=== PATIENT | female | born 1960 | race Caucasian/White ===

== ENCOUNTER 2016-05-27 12:49 | Emergency (ER) | payer OTHER, BC ==
[~2016-05-27] VITALS: Ht 154.9 cm; Wt 60.1 kg
[~2016-05-27 12:49] MED LIST: BIOTIN10000 MC1 PO; BUSPAR30 MG PO; CALCIUM CITRAT200 MG PO; DESYREL 150 MG150 MG PO; DIAZEPAM10 MG PO; DICYCLOMINE HCL20 MG PO; DILAUDID2 MG PO; ELAVIL100 MG PO; FLEXERIL10 MG PO; GABAPENTIN400 MG PO; IRON325 M1 PO; KEFLEX500 MG PO; LEVOTHYROXINE125 MCG PO; LIDODERM 5% P1 PATCH TD; MULTIPLE VITAM1 EACH PO; NAPROSYN500 MG PO; NAPROXEN500 MG PO; OMEPRAZOLE40 M1 PO; PERCOCET 5/31 TABLET PO; PREDNISONE50 MG PO; REGLAN10 MG PO; SEROQUEL100 MG PO; TRAMADOL HCL E100 M1 PO; VITAMIN B122500 MCG PO; WARFARIN SODIUM2 MG PO; ZOFRAN ODT4 MG PO
[2016-05-27 14:09] LABS: HEMATOCRIT 42.3 % (36.0-46.0); MCH 31.6 PG (29.0-34.0); MCHC 32.2 G/DL (30.0-36.0); MCV 98.1 FL (83-99); MEAN PLAT.VOLUME 11.2 uM^3 (9.5-12.4); PLATELET COUNT 198 K/uL (156-360); RBC DIS.WIDTH-CV 14.7 % (11.8-14.6); RBC DIS.WIDTH-SD 51.4 % (39-53); RED BLOOD COUNT 4.31 M/uL (3.80-5.20); WHITE BLOOD COUNT 3.6 K/uL (4.1-10.2)
[2016-05-27 14:27] LABS: CHLORIDE 109 mEq/L (99-109); POTASSIUM 4.2 mEq/L (3.7-5.4); SODIUM 142 mEq/L (136-147)
[2016-05-27 14:29] LABS: GLUCOSE 78 mg/dL (70-99)
[2016-05-27 14:30] LABS: ANION GAP 8 MEQ/L (2-14)
[2016-05-27 14:31] LABS: TOTAL BILIRUBIN 0.5 mg/dL (0.0-1.0)
[2016-05-27 14:32] LABS: ALKALINE PHOSPHATASE 85 IU/L (3-129); GFR ESTIMATE (CALCULATED) > 59 mL/min/
[2016-05-27 14:34] LABS: UREA NITROGEN (BUN) 17 mg/dL (9-23)
[2016-05-27 14:43] LABS: QUANTITATIVE HCG 7.5 MIU/ML
[2016-05-27 14:59] LABS: ADD MIUA? YES; BILIRUBIN MODERATE; BLOOD SMALL; COLOR AMBER ((YELLOW)); GLUCOSE (STRIP) NEGATIVE; KETONES 5; LEUKOCYTES NEGATIVE; NITRITE NEGATIVE; PROTEIN (STRIP) 30; SPECIFIC GRAVITY 1.028 (1.000-1.030)
[2016-05-27 15:07] LABS: LIPASE 8 U/L (1.0-51.0)
[2016-05-27 15:10] LABS: BACTERIA RARE /HPF; EPITHELIAL CELLS RARE /HPF; HYALINE CASTS 20-30 /LPF; MUCUS 4+ /LPF; RED BLOOD CELLS 15-20 /HPF (0-5); UCUL ADDED? NO; WHITE BLOOD CELLS NONE SEEN /HPF (0-5)
[2016-05-27 15:22] LABS: ICTOTEST NEGATIVE
[2016-05-27] MEDS ORDERED: BENTYL20 MG PO (17:41)
[2016-05-27] MEDS ORDERED: ZOFRAN ODT4 MG PO (17:41)
[2016-05-27 17:49] VITALS: BP 119/65
== END 2016-05-27 17:53 | disposition home or self-care (01) ==
LOC: EME 12:49 → RME 12:49
DX: R10.9 Unspecified abdominal pain (principal); G89.29 Other chronic pain; M79.7 Fibromyalgia; R56.9 Unspecified convulsions; Z86.718 Personal history of other venous thrombosis and embolism; E07.9 Disorder of thyroid, unspecified; Z98.84 Bariatric surgery status
CPT/HCPCS: 80053; 81003; 83690; 84702; 85027; 99281; 99284; J0500

== ENCOUNTER 2017-03-16 10:40 | Day surgery (SDC) | payer OTHER, BC ==
[~2017-03-16] VITALS: Ht 154.9 cm; Wt 59.1 kg
[~2017-03-16 10:40] MED LIST changes: +ASCORBIC ACID500 M3 PO; +BENTYL20 MG PO; +BIOTIN1000 MCG PO; +DESYREL100 MG PO; +DEXILANT30 MG PO; +GABAPENTIN300 MG PO; +HAIR, SKIN & N1 EAC1 PO; +IMIPRAMINE HCL50 MG PO; +OMEGA 3 500 SO1 EACH PO; +ONDANSETRON ODT4 MG PO; +SEROQUEL XR300 MG PO; +SYNTHROID88 MCG PO; +TRAMADOL HCL50 MG PO; +VISTARIL25 MG PO; +ZYRTEC10 M3 PO
== END 2017-03-16 12:02 | disposition home or self-care (01) ==
LOC: PAIN 10:40 → SDC 11:15 → PAIN 12:02
DX: M53.3 Sacrococcygeal disorders, not elsewhere classified (principal); M46.1 Sacroiliitis, not elsewhere classified; G89.29 Other chronic pain; M47.26 Other spondylosis with radiculopathy, lumbar region; M51.16 Intervertebral disc disorders with radiculopathy, lumbar region; E03.9 Hypothyroidism, unspecified; M79.7 Fibromyalgia; Z98.84 Bariatric surgery status; Z88.5 Allergy status to narcotic agent
CPT/HCPCS: J1030; J2250; J3010; S0020

== ENCOUNTER 2017-07-09 11:03 | Day surgery (SDC) | payer OTHER, BC ==
[~2017-07-09] VITALS: Ht 154.9 cm; Wt 57.2 kg
[~2017-07-09 11:03] MED LIST changes: +BIOTIN 5000MCG PO; -BIOTIN1000 MCG PO; +FLONASE ALLERG9.9 ML BOTH NARES; +SEROQUEL XR200 MG PO; -SEROQUEL XR300 MG PO; +WELLBUTRIN SR150 MG PO
== END 2017-07-09 13:52 | disposition home or self-care (01) ==
LOC: PAIN 11:03 → SDC 11:30 → PAIN 13:52
DX: M47.816 Spondylosis without myelopathy or radiculopathy, lumbar region (principal); M51.16 Intervertebral disc disorders with radiculopathy, lumbar region; M79.7 Fibromyalgia; G89.29 Other chronic pain; M46.1 Sacroiliitis, not elsewhere classified; K21.9 Gastro-esophageal reflux disease without esophagitis; E03.9 Hypothyroidism, unspecified; Z86.718 Personal history of other venous thrombosis and embolism
CPT/HCPCS: J1030; J2250; S0020

== ENCOUNTER 2017-07-14 09:33 | Day surgery (SDC) | payer OTHER, BC ==
[~2017-07-14] VITALS: Ht 154.9 cm; Wt 57.0 kg
== END 2017-07-14 11:55 | disposition home or self-care (01) ==
LOC: PAIN 09:33 → SDC 10:00 → PAIN 10:00
DX: M47.816 Spondylosis without myelopathy or radiculopathy, lumbar region (principal); M79.1 Myalgia; M54.16 Radiculopathy, lumbar region; G89.29 Other chronic pain; M25.561 Pain in right knee; M25.562 Pain in left knee; K21.9 Gastro-esophageal reflux disease without esophagitis; E03.9 Hypothyroidism, unspecified; Z86.718 Personal history of other venous thrombosis and embolism; Z98.84 Bariatric surgery status; J30.9 Allergic rhinitis, unspecified; Z88.5 Allergy status to narcotic agent; Z91.048 Other nonmedicinal substance allergy status
CPT/HCPCS: J1030; J2250; S0020

== ENCOUNTER 2017-11-24 10:25 | Day surgery (SDC) | payer OTHER, BC ==
[~2017-11-24] VITALS: Ht 154.9 cm; Wt 57.0 kg
[~2017-11-24 10:25] MED LIST changes: +ALIGN4 MG PO; +COLLAGEN PLUS1 EACH PO
== END 2017-11-24 12:25 | disposition home or self-care (01) ==
LOC: PAIN 10:25 → SDC 11:00 → PAIN 11:00
DX: M53.3 Sacrococcygeal disorders, not elsewhere classified (principal); M46.1 Sacroiliitis, not elsewhere classified; M47.816 Spondylosis without myelopathy or radiculopathy, lumbar region; M51.16 Intervertebral disc disorders with radiculopathy, lumbar region; M79.7 Fibromyalgia; M62.838 Other muscle spasm; Z88.5 Allergy status to narcotic agent; Z88.8 Allergy status to other drugs, medicaments and biological substances; Z91.040 Latex allergy status
CPT/HCPCS: J1030; S0020